=== PATIENT | female | born 1980 ===

== ENCOUNTER 2018-04-28 09:58 | Day surgery (SDC) | payer OTHER ==
[2018-04-25 09:10] VITALS: BMI 25.4
[2018-04-28 12:08] LABS: BASO # 0.1 K/uL (0.0-0.2); BASO % 0.8 % (0.0-2.0); EOS # 0.1 K/uL (0.0-0.7); EOS % 1.1 % (0.0-4.0); HEMOGLOBIN 11.6 g/dL (12.0-16.0); LYMPH # 2.6 K/uL (1.0-4.3); LYMPH % 33.9 % (20.0-40.0); MEAN CORPUSCULAR HEMOGLOBIN 28.6 pg (27.0-31.0); MEAN CORPUSCULAR HGB CONC 33.2 g/dL (33.0-37.0); MEAN PLATELET VOLUME 8.3 fl (7.2-11.7); MONO # 0.6 K/uL (0.0-0.8); MONO % 8.4 % (0.0-10.0); NEUT # 4.3 K/uL (1.8-7.0); NEUT % 55.8 % (50.0-75.0); NRBC % 0.1 % (0.0-0.0); RBC 4.06 Mil/uL (3.80-5.20); WHITE BLOOD COUNT 7.7 K/uL (4.8-10.8)
[2018-04-28] MEDS ORDERED: Silver Nitrate Topical - Stick ONE (12:16)
[2018-04-28] MEDS ORDERED: cefOXitin IV 1 gm in Dextrose 1 GM/50 ML BAG IVPB ONE (12:17)
[2018-04-28] MEDS ORDERED: Ferric Subsulfate Sol(60 mL) ONE (12:17)
[2018-04-28] MEDS ORDERED: Strong Iodine Topical Sol. 5%-10% ONE (12:17)
[2018-04-28] MEDS ORDERED: Lactated Ringer's 1,000 ML IV ONE (12:45)
[2018-04-28] MEDS ORDERED: Lidocaine 1% 5ml Abboject ONE (12:48)
[2018-04-28] MEDS ORDERED: Midazolam 2 MG/2 ML VIAL ONE (12:48)
[2018-04-28] MEDS ORDERED: Propofol 10 mg/ml Inj (20 ML) ONE (12:48)
[2018-04-28] MEDS ORDERED: Lidocaine 2% Jelly (5 ml) TOP ONE (12:56)
[2018-04-28] MEDS ORDERED: Sevoflurane - Inhalation Anesthetic Liq (250 ml) ONE (13:02)
[2018-04-28] MEDS ORDERED: Dexamethasone 4 mg/1 ml ONE (13:04)
[2018-04-28] MEDS ORDERED: HYDROmorphone 0.5 mg/0.5 ml ISec IVP PRN (13:32)
[2018-04-28] MEDS ORDERED: Droperidol 2.5 mg/ml Inj IVP PRN (13:32)
[2018-04-28 13:51] VITALS: O2SAT 100
[2018-04-28 15:17] VITALS: RESP 18
[2018-04-28 16:29] VITALS: BP 104/65; PULSE 75; TEMP 98.4
--- NOTE | 2018-05-09 22:50 | OP ---
PROCEDURE DATE: 04/28/2018 PREOPERATIVE DIAGNOSIS: Cervical polyp. POSTOPERATIVE DIAGNOSIS: Cervical polyp pending pathology. SURGEON: Alejo Peguero MD. ANESTHESIA ADMINISTERED BY: Chapincito Catalan MD PROCEDURE: Excision of cervical polyp. BLEEDING: Minimal. DESCRIPTION OF PROCEDURE: With the patient in the dorsal lithotomy position, under general anesthesia, the patient was prepped and draped in the usual sterile manner. Straight catheter was used to enter the bladder, after which the patient was examined under anesthesia, the weighted speculum was placed in the posterior vagina. Cervix was grasped anteriorly with the single-tooth tenaculum, dilated somewhat, and Sponge forceps was used to grasp the polyp and it was twisted a few times and it was released. After this was done, mild scraping was done to clear out any remaining stump. Estimated blood loss was minimal as I said. The patient tolerated the procedure well and was in satisfactory condition on the way to the recovery room. Alejo Peguero MD
== END 2018-04-28 16:35 | disposition home or self-care (01) ==
LOC: H.OPSURG 09:58
PROVIDERS: ATTEND Specialist
DX: N84.1 Polyp of cervix uteri (principal)
CPT/HCPCS: 36415; 57500; 85025; 86850; 86900; 88305; J0694; J1100; J1885; J2250; J2405; J2704; J2765; J3010; J7030; J7120